=== PATIENT | male | born 1990 | race Caucasian/White ===

== ENCOUNTER 2024-12-02 20:49 | Emergency (ER) | payer BC, SELFPAY ==
[2024-12-02 20:50] VITALS: BP 115/68; PULSE 67; RESP 16; TEMP 36.8; O2SAT 97; BMI 31.3
--- NOTE | 2024-12-02 21:00 | EX.ED.UPPERE ---
HPI <SUE Garcia - Last Filed: 12/02/24 21:33> History of Present Illness Chief Complaint: Laceration Narrative Narrative: 34-year-old qjpo-lyue-vhtycmer male was working on metal ductwork in his basement and sustained a laceration to his left thumb. Bleeding is controlled. No weakness numbness or tingling. Tetanus is up-to-date within the last 5 years. PFSH <SUE Garcia - Last Filed: 12/02/24 21:33> PFSH Allergy/AdvReac Type Severity Reaction Status Date / Time Seasonal Allergies: Uncoded Allergy congestion Verified 12/02/24 20:53 Social History Smoking Status: Never smoker ROS <SUE Garcia - Last Filed: 12/02/24 21:33> ROS ED ROS Narrative Neuro: Negative for motor/sensory dysfunction. Skin: Positive for laceration. Musc: Negative for joint pain. EXAM <SUE Garcia - Last Filed: 12/02/24 21:33> Physical Exam Narrative Exam Narrative: CONST: Patient sitting in no acute distress. EYES: Normal inspection. SKIN: 2 cm linear laceration on the left thumb over the dorsal surface of the proximal phalanx to the level of the subcutaneous tissue. Full range of motion of wrist thumb and all digits, normal motor or sensory function in median radial and ulnar distributions, 2+ radial pulse and brisk cap refill. NEURO: Alert and answering questions appropriately. PSYCH: Normal affect. Const Vital Signs: 12/02/24 20:50 Temperature 98.2 F Temperature Source Oral Pulse Rate 67 Respiratory Rate 16 Blood Pressure 115/68 Blood Pressure Mean 83 Pulse Ox 97 Oxygen Delivery Method Room Air MDM <SUE Garcia - Last Filed: 12/02/24 21:33> [facility] Narrative Medical decision making narrative: Patient has a 3 cm laceration on the base of his left thumb. Its to the subcutaneous tissue. There is no tendon injury and he is neurovascular intact. No indication for x-ray. I repaired the wound with 4 sutures?see procedure note. His tetanus is already up-to-date. He was given wound care instructions and discharged in stable condition. <Dr. Zane Salazar MD - Last Filed: 12/02/24 22:20> [facility] Narrative Medical decision making narrative: Patient has a 3 cm laceration on the base of his left thumb. Its to the subcutaneous tissue. There is no tendon injury and he is neurovascular intact. No indication for x-ray. I repaired the wound with 4 sutures?see procedure note. His tetanus is already up-to-date. He was given wound care instructions and discharged in stable condition. I have personally performed a face to face assessment of the patient and have reviewed the MELANIE Note. I performed a substantive portion of the visit including all aspects of the following. My cabrales findings include: History is markable for laceration ulnar side of left thumb near webspace. He denies paresthesia, anesthesia motors. Exam is laceration. Median, radial and ulnar function intact. Capillary refill normal. 2 point discrimination normal. Extensor mechanism intact. Medical Decision Making patient's laceration will require repair. This was performed by the midlevel. Wound was assessed after repair. Other additions or changes: [None] Procedures <SUE Garcia - Last Filed: 12/02/24 21:33> Lacerations left thumb: Length: 1.18 in Depth: Sub Q Shape: Linear Prep: Sterile Conditions Laceration repair: Irrigated, Lidocaine, Local and Wound explored Irrigated (ml): 100 Number of Sutures/Aleida: 4 Suture Information: Ethilon, Simple and 5-0 Discharge Plan Triage Chief Complaint: Laceration ED Midlevel Provider: Jeannie Padilla ED Provider: Zane Salazar Dx/Rx/DC Orders Clinical Impression: Laceration of left thumb Instructions: ED Laceration Extremity Primary Care Provider: Tod Orozco Activity Restrictions/Additional Instructions: Clean daily with soap and water, pat dry, you can cover with bacitracin and a bandage or leave open as long as it does not get dirty. Do not submerge underwater or go swimming until stitches are out. The stitches need removed in 7 days. Please be seen immediately if you develop signs of infection like redness, swelling, pus, fever or increased pain. Print Language: Congolese Disposition Disposition: Home, Self Care Discharge Date/Time: 12/02/24 21:41
[2024-12-02 21:40] VITALS: BP 121/57; PULSE 62; RESP 16; TEMP 36.8; O2SAT 97
== END 2024-12-02 21:41 | disposition home or self-care (01) ==
LOC: ED 21:19
PROVIDERS: Emergency Provider Emergency Medicine; PCP Family Medicine; Visit Provider Emergency Medicine
DX: S61.012A Laceration without foreign body of left thumb without damage to nail, initial encounter (principal); W26.8XXA Contact with other sharp object(s), not elsewhere classified, initial encounter
CPT/HCPCS: 12042; 99284